=== PATIENT | female | born 1985 | race Caucasian/White ===

== ENCOUNTER → 2023-11-17 07:52 | Outpatient (BNVA) | payer MEDICAID, SELFPAY | PROVIDERS: Visit Provider Nurse Practitioner Women's Health | DX: Z34.90 Encounter for supervision of normal pregnancy, unspecified, unspecified trimester | CPT/HCPCS: 81025; 84702; 86850; 86900 ==

== ENCOUNTER → 2023-11-29 11:09 | Outpatient (BNVA) | payer MEDICAID, SELFPAY | PROVIDERS: Visit Provider Nurse Practitioner Women's Health | DX: Z36.87 Encounter for antenatal screening for uncertain dates (principal) | CPT/HCPCS: 76801 ==

== ENCOUNTER → 2023-12-20 09:17 | Outpatient (BNVA) | payer MEDICAID, SELFPAY | PROVIDERS: Visit Provider Nurse Practitioner Women's Health | DX: Z34.90 Encounter for supervision of normal pregnancy, unspecified, unspecified trimester (principal) | CPT/HCPCS: 80307; 84315; 84443; 85025; 86592; 86762; 86803; 86850; 86900; 87086; 87340; 87806 ==

== ENCOUNTER → 2024-02-23 09:24 | Outpatient (BNVA) | payer BC, MEDICAID, SELFPAY | PROVIDERS: Visit Provider Obstetrics & Gynecology | DX: Z36.2 Encounter for other antenatal screening follow-up (principal); Z3A.20 20 weeks gestation of pregnancy; O44.22 Partial placenta previa NOS or without hemorrhage, second trimester | CPT/HCPCS: 76805 ==

== ENCOUNTER → 2024-03-21 09:03 | Outpatient (BNVA) | payer BC, MEDICAID, SELFPAY | PROVIDERS: Visit Provider Nurse Practitioner Women's Health | DX: Z34.90 Encounter for supervision of normal pregnancy, unspecified, unspecified trimester (principal) | CPT/HCPCS: 76815; 76817; 84315 ==

== ENCOUNTER → 2024-04-18 08:29 | Outpatient (BNVA) | payer BC, MEDICAID, SELFPAY | PROVIDERS: Visit Provider Obstetrics & Gynecology | DX: O09.899 Supervision of other high risk pregnancies, unspecified trimester (principal); O09.299 Supervision of pregnancy with other poor reproductive or obstetric history, unspecified trimester; Z86.32 Personal history of gestational diabetes; Z3A.28 28 weeks gestation of pregnancy | CPT/HCPCS: 82950; 84315 ==

== ENCOUNTER → 2024-05-01 14:31 | Outpatient (BNVA) | payer BC, MEDICAID, SELFPAY | PROVIDERS: Visit Provider Obstetrics & Gynecology | DX: Z36.9 Encounter for antenatal screening, unspecified (principal) | CPT/HCPCS: 76815; 76817 ==

== ENCOUNTER → 2024-05-08 08:10 | Outpatient (BNVA) | payer BC, MEDICAID, SELFPAY | PROVIDERS: Visit Provider Obstetrics & Gynecology | DX: O09.899 Supervision of other high risk pregnancies, unspecified trimester (principal); O09.299 Supervision of pregnancy with other poor reproductive or obstetric history, unspecified trimester; Z86.32 Personal history of gestational diabetes | CPT/HCPCS: 84315 ==

== ENCOUNTER → 2024-05-16 08:18 | Outpatient (BNVA) | payer BC, MEDICAID, SELFPAY | PROVIDERS: Visit Provider Nurse Practitioner Women's Health | DX: O09.299 Supervision of pregnancy with other poor reproductive or obstetric history, unspecified trimester (principal); Z86.32 Personal history of gestational diabetes; E03.8 Other specified hypothyroidism; Z3A.10 10 weeks gestation of pregnancy; O09.899 Supervision of other high risk pregnancies, unspecified trimester | CPT/HCPCS: 76816; 82951; 82952; 84315; 84439; 84443; 84481 ==

== ENCOUNTER → 2024-05-30 07:52 | Outpatient (BNVA) | payer BC, MEDICAID, SELFPAY | PROVIDERS: Visit Provider Nurse Practitioner Women's Health | DX: O09.299 Supervision of pregnancy with other poor reproductive or obstetric history, unspecified trimester (principal); Z86.32 Personal history of gestational diabetes; O09.899 Supervision of other high risk pregnancies, unspecified trimester | CPT/HCPCS: 84315 ==

== ENCOUNTER → 2024-06-13 08:52 | Outpatient (BNVA) | payer BC, MEDICAID, SELFPAY | PROVIDERS: Visit Provider Obstetrics & Gynecology | DX: O09.299 Supervision of pregnancy with other poor reproductive or obstetric history, unspecified trimester (principal); Z86.32 Personal history of gestational diabetes; Z3A.10 10 weeks gestation of pregnancy | CPT/HCPCS: 84315; 87081 ==

== ENCOUNTER → 2024-06-27 08:13 | Outpatient (BNVA) | payer BC, MEDICAID, SELFPAY | PROVIDERS: Visit Provider Obstetrics & Gynecology | DX: Z34.90 Encounter for supervision of normal pregnancy, unspecified, unspecified trimester (principal) | CPT/HCPCS: 84315 ==

== ENCOUNTER → 2024-07-04 08:05 | Outpatient (BNVA) | payer BC, MEDICAID, SELFPAY | PROVIDERS: Visit Provider Obstetrics & Gynecology | DX: Z34.80 Encounter for supervision of other normal pregnancy, unspecified trimester (principal) | CPT/HCPCS: 84315 ==

== ENCOUNTER 2024-07-10 18:30 | Inpatient (IN) | payer BC, MEDICAID, SELFPAY ==
[2024-07-10] VITALS (13 sets, daily range): BP systolic 118–141; BP diastolic 69–84; PULSE 82–96; TEMP 36.7; BMI 35.6
[2024-07-10 19:48] LABS: Basophils # 0.1 10^3/uL (0.0-0.1); Basophils % 0.4 %; Eosinophils # 0.2 10^3/uL (0.0-0.8); Eosinophils % 1.7 %; Hematocrit 37.8 % (36-47); Lymphocytes # 1.6 10^3/uL (0.8-4.8); Lymphocytes % 14.3 %; Mean Corpuscular HGB Conc 33.1 g/dL (30-55); Mean Corpuscular Hemoglobin 28.3 pg (27-33); Mean Corpuscular Volume 85.5 fl (85-98); Mean Platelet Volume 10.7 fL (7.4-10.4); Monocytes # 0.7 10^3/uL (0.2-0.9); Monocytes % 6.3 %; Neutrophils # 8.67 10^3/uL (1.8-7.7); Neutrophils % 76.6 %; Nucleated Red Blood Cells % 0 %; Platelet Count 221 10^3/cmm (157-399); Red Blood Count 4.42 10^6/uL (3.85-5.65); Red Cell Distribution Width 13.8 % (12.1-15.1); White Blood Count 11.32 10^3/uL (3.29-11.43)
[2024-07-10] MEDS: ampicillin 2,000 MG in sodium chloride 0.9% (plus) 50 ML 100 MG IV (20:07)
[2024-07-10] MEDS: dextrose 5%-lactated ringers 1,000 ML 125 ML IV (20:07)
--- NOTE | 2024-07-10 20:16 | PM.OPHPUD ---
Labor & Delivery H&P Update Date of Procedure: July 10, 2024 Date H&P Performed: 07/04/24 H&P update information: I have reviewed H&P completed within last 30 days, I have examined patient prior to procedure and No changes to prior documentation Admission Diagnosis:
[2024-07-10] MEDS: miSOPROStol 100 mcg tablet 25 MCG VAGINAL (22:08)
[2024-07-11] VITALS (67 sets, daily range): BP systolic 104–148; BP diastolic 55–85; PULSE 71–131; RESP 16–18; TEMP 37–37.2; O2SAT 88–100
[2024-07-11] MEDS: ampicillin 1,000 MG in sodium chloride 0.9% (plus) 50 ML 100 MG IV ×2 (00:26→04:25)
[2024-07-11] MEDS: lactated ringers 1,000 ML 999 ML IV (03:20)
[2024-07-11] MEDS: fentaNYL 50 mcg/mL INJ 2mL IVP (04:02)
--- NOTE | 2024-07-11 06:16 | ANES.PROC ---
Anesthesia Procedures Procedure/Date: 07/11/24 epidural Epidural: Time Out Performed: Yes ([id number]) Consent: from patient, risks and benefits reviewed and patient agrees to proceed Lumbar Level: L1-L2 Epidural position: sitting Epidural procedure: sterile prep of area, 1% lidocaine to numb the area, negative for paresthesia passed, test dose given (4322), sterile dressing applied and L.U.D. no apparent complications Other Information: Given Bupicaine 0.25% (8mls) fractionated after negative aspiration. Fentanyl 100mcg per epidural.
[2024-07-11] MEDS: miSOPROStol 200 mcg Tablet 800 MCG PR (07:40)
[2024-07-11] MEDS: oxytocin 30 UNIT/500 ML BAG 600 UNIT IV (07:47)
[2024-07-11] MEDS: lidocaine 2% INJ 20 mL INJECTION (07:47)
--- NOTE | 2024-07-11 08:16 | PM.DELIVERY ---
Delivery Note: Date of delivery: July 11, 2024 Pre-delivery diagnoses: Term Post-delivery diagnoses: Term delivered Procedure: Spontaneous vaginal delivery Delivering Physician: Matthew Jackson MD Delivery: The patient was noted to be complete and pushing, so was placed in the dorsal lithotomy position, prepped and draped in the usual sterile fashion for a vaginal delivery. Pt. Noted to have epidural anesthesia. At 0733 the patient delivered a viable term female weighing 4000 g with scores of 8 and 9 at one and five minutes, respectively. The vertex was delivered spontaneously over intact perineum. The patient was asked to push and the head delivered spontaneously in the WENDI position, over an intact perineum. A nuchal cord was checked and 1 noted, and delivered through around head as necessary. The anterior shoulder delivered easily and the posterior shoulder followed. The remainder of the was easily delivered and the oropharynx and nasopharynx was bulb suctioned. The was noted to have spontaneous cry and spontaneous movement of all four extremities. The cord was clamped x 2 and cut and noted to have 2 arteries and one vein. The was passed to the mother's abdomen where nursing personnel were in attendance. The placenta delivered intact spontaneously and the uterus was explored. 20 units of Pitocin was placed in the IV bag to firm the uterus. Examination of the cervix and vaginal vault did not reveal any lacerations. Examination of the perineum showed a second-degree laceration. The laceration was repaired with 3-0 Vicryl in the normal fashion in a running non locking fashion to reapproximate the laceration in layers. The patient tolerated this procedure well, and recovered in L&D with her infant in their LDR room. All sponge and needle counts were correct. Post-Delivery Status: Good and stable History History History 4 Term 1 1 Miscarriages/Ectopic 1 Living Children 2 A&P Assessment and plan (1) Term delivered: Plan laceration PDMP PDMP Reviewed: Not Reviewed Coding Level of Care Code Acute Code for Chg Fwd Diagnoses Term delivered O80
[2024-07-11] MEDS: ibuprofen 800 mg tablet PO ×2 (15:39→20:49)
[2024-07-11 20:07] LABS: Mean Corpuscular HGB Conc 32.8 g/dL (30-55); Mean Corpuscular Hemoglobin 28.3 pg (27-33); Mean Corpuscular Volume 86.3 fl (85-98); Mean Platelet Volume 10.2 fL (7.4-10.4); Platelet Count 203 10^3/cmm (157-399); Red Blood Count 3.71 10^6/uL (3.85-5.65); Red Cell Distribution Width 14.3 % (12.1-15.1); White Blood Count 17.08 10^3/uL (3.29-11.43)
[2024-07-11] MEDS: docusate sodium 100 mg Capsule PO (20:49)
[2024-07-12 04:36] VITALS: BP 123/72; PULSE 90; RESP 16; TEMP 36.6; O2SAT 98
--- NOTE | 2024-07-12 08:00 | ANE.PACU2 ---
Inpatient post-anesthesia follow up: Airway intact: Yes Vital signs: Temperature 97.8 F Pulse Rate 97 Respiratory Rate 16 Blood Pressure 117/76 Pulse Oximetry 98 Oxygen Delivery Me thod Room Air Oxygen Flow Rate Fraction of Inspir ed Oxygen Hydration adequate: Yes Nausea and vomiting: No Pain level: 1 Mental status: Baseline Epidural Start/End: Epidural Start Date: 07/11/24 Epidural Start Time: 05:50 Epidural End Date: 07/11/24 Epidural End Time: 08:30
[2024-07-12] MEDS: docusate sodium 100 mg Capsule PO (08:16)
[2024-07-12] MEDS: ibuprofen 800 mg tablet PO (08:16)
[2024-07-12 09:33] VITALS: BP 115/73; PULSE 98; RESP 15; TEMP 36.6; O2SAT 98
[2024-07-12 11:30] VITALS: BP 117/76; PULSE 97; RESP 16; TEMP 36.6; O2SAT 98
--- NOTE | 2024-07-12 11:50 | PM.OBGYDC ---
Discharge Providers TELEVISION REPORTER Date of Admission: 07/10/24 18:30 Date of Discharge: 07/12/24 Attending Provider at Admission: Matthew Jackson MD Attending Provider at Discharge: Matthew Jackson MD Consults: none Primary TELEVISION REPORTER: Ian Flores MD Diagnoses at Discharge Discharge Diagnosis (1) Term delivered: Details from hospital stay: 39 y.o. at 39 w 6 d admitted for elective induction of labor patient progressed to complete dilatation fetus was reassuring throughout patient had vaginal delivery with repair of second-degree perineal laceration without any complications patient did well and was discharged to home on the first day Status: Inactive Reason for Visit Reason for Visit: IOL Brief History: 39 y.o. at 39 w 6 d admitted for elective induction of labor Hospital Course Hospital Course 39 y.o. at 39 w 6 d admitted for elective induction of labor patient progressed to complete dilatation fetus was reassuring throughout patient had vaginal delivery with repair of second-degree perineal laceration without any complications patient did well and was discharged to home on the first day Information Peripartum Data: Infant Delivery Method: Vaginal Laceration description: Perineal - 2nd Degree Episiotomy description: None complications: none Physical Exam Narrative: General comfortable, awake, alert VS normal. afebrile Lungs: clear Cor: RRR Abd: soft, nontender. Fundus firm Ext: normal History History History 4 Term 1 1 Miscarriages/Ectopic 1 Living Children 2 Discharge Data Studies Completed and Pending Laboratory Results WBC 17.08 10^3/uL (3.29-11.43) H 07/11/24 19:54 RBC 3.71 10^6/uL (3.85-5.65) L 07/11/24 19:54 Hgb 10.50 g/dL (11.27-16.99) L 07/11/24 19:54 Hct 32.0 % (36-47) L 07/11/24 19:54 MCV 86.3 fl (85-98) 07/11/24 19:54 MCH 28.3 pg (27-33) 07/11/24 19:54 MCHC 32.8 g/dL (30-55) 07/11/24 19:54 RDW 14.3 % (12.1-15.1) 07/11/24 19:54 Plt Count 203 10^3/cmm (157-399) 07/11/24 19:54 MPV 10.2 fL (7.4-10.4) 07/11/24 19:54 Neut % (Auto) 76.6 % 07/10/24 19:26 Lymph % (Auto) 14.3 % 07/10/24 19:26 Craig % (Auto) 6.3 % 07/10/24 19:26 Eos % (Auto) 1.7 % 07/10/24 19:26 Baso % (Auto) 0.4 % 07/10/24 19: Neut # (Auto) 8.67 10^3/uL (1.8-7.7) H 07/10/24 19:26 Lymph # (Auto) 1.6 10^3/uL (0.8-4.8) 07/10/24 19: Craig # (Auto) 0.7 10^3/uL (0.2-0.9) 07/10/24 19: Eos # (Auto) 0.2 10^3/uL (0.0-0.8) 07/10/24 19: Baso # (Auto) 0.1 10^3/uL (0.0-0.1) 07/10/24 19: Nucleated RBC % (auto) 0 % 07/10/24 19: Nucleated RBCs # 0.0 /100WBC 07/10/24 19:26 Blood Type A Positive 07/10/24 19:26 Rho(D) Type Rh positive 07/10/24 19:26 Antibody Screen Negative 07/10/24 19:26 Procedures Performed induction of labor vaginal delivery Vitals Last Vital Signs Temp 97.8 F 07/12/24 11:30 Pulse 97 07/12/24 11:30 Resp 16 07/12/24 11:30 BP 117/76 07/12/24 11:30 Pulse Ox 98 07/12/24 11:30 O2 Del Method Room Air 07/12/24 09:33 Results Labs OB ([facility]): Obstetrics US 05/16/24 Blood Type A Positive 07/10/24 Antibody Screen Negative 07/10/24 Hct 32.0 % (36-47) L 07/11/24 Hgb 10.50 g/dL (11.27-16.99) L 07/11/24 Rho(D) Type Rh positive 07/10/24 Plt Count 203 10^3/cmm (157-399) 07/11/24 Hep Bs Antigen Non-reactive (Nonreactive) 12/20/23 Hepatitis C Antibody Non-reactive (Nonreactive) 12/20/23 Rubella IgG Antibody 44.3 IU/mL (0.0-10.0) H 12/20/23 RPR Nonreactive (Nonreactive) 12/20/23 HIV 1&2 Ab & HIV 1 Ag Non-reactive (Non-Reactiv) 12/20/23 TSH 1.74 uIU/mL (0.27-4.20) 05/16/24 Free T4 0.63 ng/dL (0.82-1.77) L 05/16/24 Glucose 1 Hr 50 gm 153 mg/dL (85-140) H 04/18/24 Gest Glucose Tolerance mg/dL 05/16/24 Ser , Semi-Qnt 64524.00 mIU/mL 11/17/23 HCG, Qual Positive (Negative) H 11/17/23 Urine Opiates Screen Negative ng/mL (Negative) 12/20/23 Ur Barbiturates Screen Negative ng/mL (Negative) 12/20/23 Ur Phencyclidine Scrn Negative ng/mL (Negative) 12/20/23 Ur Amphetamines Screen Negative ng/mL (Negative) 12/20/23 U Benzodiazepines Scrn Negative ng/mL (Negative) 12/20/23 Urine Cocaine Screen Negative ng/mL (Negative) 12/20/23 U Marijuana (THC) Screen Negative ng/mL (Negative) 12/20/23 Micro Urine Specimen 12/20/23 Discharge Plan Discharge Patient Disposition: Home Condition: Stable Prescriptions: New ibuprofen 800 mg tablet 800 mg PO Q8H PRN (Reason: pain) Qty: 60 6RF Continued levothyroxine 50 mcg capsule 50 mcg PO DAILY Qty: 60 0RF Rx Instructions: take one capsule daily buspirone 5 mg tablet 5 mg PO DAILY PRN (Reason: anxiety) Qty: 30 2RF Rx Instructions: PRN triamcinolone acetonide 0.025 % cream 1 applic topical BID prenat.vits,ailyn,sew-aiik-umvur Tablet 1 tab PO DAILY Discharge Orders: Discharge Order (Routine); Ordered 07/12/24 Ordered By: Ian Flores Referrals: Kimi Sharif, RAJWINDER [Nurse Practitioner] - 08/22/24 10:45 am Discharge Diet: Usual diet Discharge Activity: Increase activity as tolerated Patient Instructions: Depression (DC), Opioid Safety (DC), Preeclampsia and Eclampsia After Delivery (GEN), Hemorrhage (DC), OB Discharge Report, OB Food/Drug Interaction Guide, Opioid Safety, OB Home Care, OB Vaginal Deliveries - [facility], Abnormal Bleeding Discharge Attestations TELEVISION REPORTER Time Spent in Discharge Care*: less than 30 min Coding Level of Care Code Acute Code for Chg Fwd Diagnoses Term delivered O80
== END 2024-07-12 11:30 | disposition home or self-care (01) | DRG 807 ==
PROVIDERS: Admitting Provider Obstetrics & Gynecology; Visit Provider Obstetrics & Gynecology
DX: O69.81X0 Labor and delivery complicated by cord around neck, without compression, not applicable or unspecified (principal); Z37.0 Single live birth; O70.1 Second degree perineal laceration during delivery; Z3A.39 39 weeks gestation of pregnancy
CPT/HCPCS: 36415; 59025; 59409; 85025; 85027; 86850; 86900; 96374; J0290; J2590; J3010; J3490; J7120; J7121; J9999